=== PATIENT | female | born 1990 | race Caucasian/White ===

== ENCOUNTER 2017-04-18 01:51 | Observation (INO) ==
[2017-04-18 02:27] LABS: Basophils % 0.4 %; Eosinophils # 0.1 K/mcL (0.0-0.6); Eosinophils % 0.7 %; Hematocrit 38.8 % (35.3-44.9); Hemoglobin 12.5 g/dL (11.5-15.4); Immature Granulocytes % 0.3 % (0-4); Immature Platelets 1.3 % (1.1-6.1); Lymphocytes # 2.2 K/mcL (0.6-4.6); Mean Corpuscular HGB Conc 32.2 g/dL (31.6-35.5); Mean Corpuscular Hemoglobin 27.6 pg (28.0-33.3); Mean Corpuscular Volume 85.7 fL (83.0-100.0); Mean Platelet Volume 8.8 fL (9.4-12.4); Monocytes # 0.7 K/mcL (0.0-1.3); Monocytes % 9.3 %; Neutrophils # 4.6 K/mcL (1.6-8.9); Platelet Count 322 K/mcL (140-400); Red Blood Count 4.53 M/mcL (3.82-4.97); Red Cell Distribution Width 12.9 % (11.5-14.5); Segmented Neutrophils % 60.3 %
[2017-04-18 02:35] LABS: INR 1.1; Prothrombin Time 11.3 Seconds (9.4-12.1)
[2017-04-18 02:38] LABS: Activated Partial Thrombo Time 36.7 Seconds (26.0-36.0)
[2017-04-18 02:41] LABS: BUN/Creatinine Ratio 11 (6-26); Blood Urea Nitrogen 9 mg/dL (7-20); Calcium 9.8 mg/dL (8.6-10.8); Carbon Dioxide 24 mEq/L (19-29); Chloride 106 mEq/L (98-109); Glucose 96 mg/dL (70-99); Osmolality,Calculated 285 (280-300); Potassium 3.7 mEq/L (3.5-4.5); Sodium 138 mEq/L (136-145); eGFR For African Americans > 60 (> 60); eGFR For Non-African Americans > 60 (> 60)
--- NOTE | 2017-04-18 03:01 | Emergency Department Note ---
Disposition Clinical Impression: Acute focal neurological deficit, onset within 3-24 hours Disposition: Admitted As Inpatient Condition: Fair Time of Disposition: 05:03 Neuro HPI - General Chief Complaint: ED Neuro Symptoms/Deficit Stated Complaint: stroke symptoms Time Seen by Provider: 04/18/17 02:00 Source: EMS Mode of arrival: EMS Limitations: altered mental status Nursing Notes Reviewed: Yes Vital Signs Reviewed: Yes - History of Present Illness HPI Narrative: 27-year-old female is brought by EMS for evaluation of neurological deficits. EMS states that they were turned out to the patient's place of employment at 0100 hours this morning. Upon their arrival at the scene, at 0122 hours, EMS report that the patient was a phasic, and refused to move her right upper and lower extremities. Upon her arrival at the emergency department, the patient is a phasic and continues to show near global deficits. She refuses to move her right upper or lower extremity. Her left upper and lower extremity have no resistance to gravity. Extraocular movements are intact. When asked to smile, the patient appears to be intentionally show bilateral facial deficits. She is able to blink and open both eyes with movement of both eyebrows and forehead musculature apparent. The patient was seen at this facility just hours earlier. At that time, she was evaluated for extrapyramidal-like effects from her Geodon. She was given a injection of Cogentin and discharged home. Onset of Symptoms Date: 04/18/17 Onset of Symptoms Time: 01:00 Timing confirmed by: other (Coworker) Location: other Improves with: none Worsens with: none Context: sudden onset On Anticoagulants: No - Related Data Home Medications: Previous Rx's Medication Instructions Recorded FLUoxetine HCl [Prozac] 20 mg PO DAILY #30 capsule 04/05/17 traZODone [TraZODone] 100 mg PO HS #60 tablet 04/05/17 Benztropine [Cogentin] 1 mg PO DAILY #14 tablet 04/17/17 Aripiprazole [Abilify] 5 mg PO DAILY #30 tablet 04/18/17 Aspirin 81 mg PO DAILY tab.chew 04/18/17 Allergies/Adverse Reactions: Allergies Allergy/AdvReac Type Severity Reaction Status Date / Time metronidazole [From Flagyl] AdvReac See Verified 12/06/16 17:15 Comments Limitations: ROS unobtainable due to patients medical condition Past Medical History - Past Medical History Attestation: Yes The following information was validated with the patient. Source: old records reviewed Medical history: Reports: kidney stones Psychiatric history: Reports: anxiety, bipolar, depression, panic disorder, schizophrenia HEALTHCARE ANALYST history: Reports: polycystic ovary syndrome - Social History Smoking Status: Never smoker Smokeless Tobacco Status: No Alcohol use: Reports: none Drug use: Reports: none Physical Exam - General Limitations: no limitations General appearance: alert - Head Head exam: atraumatic, normocephalic, normal inspection - Eye Eye exam: Present: PERRL, EOMI. Absent: nystagmus - Expanded Eye Exam Pupils: Bilateral: regular, round, reactive, size (7) - ENT ENT exam: mucous membranes moist - Chest Chest inspection: Present: normal inspection, symmetric chest wall rise - Respiratory Respiratory exam: Present: normal lung sounds bilaterally. Absent: respiratory distress, wheezes, stridor, accessory muscle use, prolonged expiratory phase - Cardiovascular Cardiovascular exam: Present: regular rate, normal rhythm, normal heart sounds - Abdominal Exam Abdominal exam: Present: soft, Non-Tender, normal bowel sounds - Extremities Exam Extremities exam: Present: normal inspection - Neurological Exam Neurological exam: Present: alert, motor sensory deficit - Expanded Neurological Exam Speech: Present: total aphasia Cranial nerves: EOM function (II, III, IV, ): Normal, facial palsy (VII): Abnormal Left, Abnormal Right, spinal accessory function (XI): Abnormal Left, Abnormal Right, tongue deviation (XII): Abnormal Left, Abnormal Right Cerebellar function: finger to nose: Abnormal Right, heel to preciado: Abnormal Right Motor strength - LUE: 5/5 Motor strength - RUE: 0/5 Motor strength - LLE: 4/5 Motor strength - RLE: 1/5 Upper motor neuron exam: pronator drift: Present of right Sensory exam upper extremity: light touch: Abnormal Right, pin prick: Abnormal Right Sensory exam lower extremity: light touch: Abnormal Right, pin prick: Abnormal Right Coma Scale Eye Opening: Spontaneous Coma Scale Motor Response: Obeys Commands - Skin Skin exam: Present: warm, dry, intact, normal color Course Course Narrative: NIHSS=17 [id number]: I spoke with Dr. Chi, Neurologist with [facility]. She will evaluate the patient via tele-stroke. The patient has been evaluated by the [facility] neurologists. TPA will not be administered. The neurologist recommends a period of observation prior to disposition. 0500: I spoke with Dr. Cmapos of the hospitalist service who has accepted the patient for admission to his service. - Reevaluation(s) Reevaluation #1: The patient's symptoms have been consistently improving ever since her arrival. She is now able to articulate and move all extremities, although some seemingly right-sided deficits still remained. We will admit the patient to the hospitalist service for further evaluation and workup. Time: 04:23 Vital Signs Temperature 98.2 F 04/18/17 01:57 Pulse Rate 94 04/18/17 01:57 Respiratory Rate 16 04/18/17 01:57 Blood Pressure 137/91 04/18/17 01:57 O2 Sat by Pulse Oximetry 98 04/18/17 01:57 Temperature 98.0 F 04/18/17 15:01 Pulse Rate 78 04/18/17 15:01 Respiratory Rate 12 04/18/17 15:01 Blood Pressure 137/97 04/18/17 15:01 O2 Sat by Pulse Oximetry 98 04/18/17 15:01 Oxygen Delivery Oxygen Delivery Room Air Neuro Symptoms/Deficit - Medical Records Medical records reviewed: Yes I reviewed the patient's medical records. - Lab Data Lab results reviewed: Yes I reviewed the patient's lab results. Lab results narrative: Lab Results 04/18/17 04/18/17 04/18/17 Range/Units 01:55 02:18 02:19 WBC 7.7 (4.3-11.1) K/mcL RBC 4.53 (3.82-4.97) M/mcL Hgb 12.5 (11.5-15.4) g/dL Hct 38.8 (35.3-44.9) % MCV 85.7 (83.0-100.0) fL MCH 27.6 L (28.0-33.3) pg MCHC 32.2 (31.6-35.5) g/dL RDW 12.9 (11.5-14.5) % Plt Count 322 (140-400) K/mcL MPV 8.8 L (9.4-12.4) fL Immature Gran % 0.3 (0-4) % Seg Neutrophils % 60.3 % Lymphocytes % 29.0 % Monocytes % 9.3 % Eosinophils % 0.7 % Basophils % 0.4 % Neutrophils # 4.6 (1.6-8.9) K/mcL Lymphocytes # 2.2 (0.6-4.6) K/mcL Monocytes # 0.7 (0.0-1.3) K/mcL Eosinophils # 0.1 (0.0-0.6) K/mcL Basophils # 0.0 (0.0-0.2) K/mcL Immature Plt Fraction 1.3 (1.1-6.1) % PT 11.3 (9.4-12.1) Seconds INR 1.1 APTT 36.7 H (26.0-36.0) Seconds Sodium (136-145) mEq/L Potassium (3.5-4.5) mEq/L Chloride (98-109) mEq/L Carbon Dioxide (19-29) mEq/L BUN (7-20) mg/dL Creatinine (0.57-1.11) mg/dL Est GFR ( Amer) (> 60) Est GFR (Non-Af Amer) (> 60) BUN/Creatinine Ratio (6-26) Glucose (70-99) mg/dL POC Glucose 90 H (58-89) Calculated Osmolality (280-300) Calcium (8.6-10.8) mg/dL Troponin I (0-0.03) ng/mL 04/18/17 04/18/17 Range/Units 02:19 02:19 WBC (4.3-11.1) K/mcL RBC (3.82-4.97) M/mcL Hgb (11.5-15.4) g/dL Hct (35.3-44.9) % MCV (83.0-100.0) fL MCH (28.0-33.3) pg MCHC (31.6-35.5) g/dL RDW (11.5-14.5) % Plt Count (140-400) K/mcL MPV (9.4-12.4) fL Immature Gran % (0-4) % Seg Neutrophils % % Lymphocytes % % Monocytes % % Eosinophils % % Basophils % % Neutrophils # (1.6-8.9) K/mcL Lymphocytes # (0.6-4.6) K/mcL Monocytes # (0.0-1.3) K/mcL Eosinophils # (0.0-0.6) K/mcL Basophils # (0.0-0.2) K/mcL Immature Plt Fraction (1.1-6.1) % PT (9.4-12.1) Seconds INR APTT (26.0-36.0) Seconds Sodium 138 (136-145) mEq/L Potassium 3.7 (3.5-4.5) mEq/L Chloride 106 (98-109) mEq/L Carbon Dioxide 24 (19-29) mEq/L BUN 9 (7-20) mg/dL Creatinine 0.82 (0.57-1.11) mg/dL Est GFR ( Amer) > 60 (> 60) Est GFR (Non-Af Amer) > 60 (> 60) BUN/Creatinine Ratio 11 (6-26) Glucose 96 (70-99) mg/dL POC Glucose (58-89) Calculated Osmolality 285 (280-300) Calcium 9.8 (8.6-10.8) mg/dL Troponin I 0.00 (0-0.03) ng/mL Result diagrams: 04/18/17 02:19 04/18/17 02:19 Lab Results 04/18/17 04/18/17 04/18/17 Range/Units 01:55 02:18 02:19 WBC 7.7 (4.3-11.1) K/mcL RBC 4.53 (3.82-4.97) M/mcL Hgb 12.5 (11.5-15.4) g/dL Hct 38.8 (35.3-44.9) % MCV 85.7 (83.0-100.0) fL MCH 27.6 L (28.0-33.3) pg MCHC 32.2 (31.6-35.5) g/dL RDW 12.9 (11.5-14.5) % Plt Count 322 (140-400) K/mcL MPV 8.8 L (9.4-12.4) fL Immature Gran % 0.3 (0-4) % Seg Neutrophils % 60.3 % Lymphocytes % 29.0 % Monocytes % 9.3 % Eosinophils % 0.7 % Basophils % 0.4 % Neutrophils # 4.6 (1.6-8.9) K/mcL Lymphocytes # 2.2 (0.6-4.6) K/mcL Monocytes # 0.7 (0.0-1.3) K/mcL Eosinophils # 0.1 (0.0-0.6) K/mcL Basophils # 0.0 (0.0-0.2) K/mcL Immature Plt Fraction 1.3 (1.1-6.1) % PT 11.3 (9.4-12.1) Seconds INR 1.1 APTT 36.7 H (26.0-36.0) Seconds Sodium (136-145) mEq/L Potassium (3.5-4.5) mEq/L Chloride (98-109) mEq/L Carbon Dioxide (19-29) mEq/L BUN (7-20) mg/dL Creatinine (0.57-1.11) mg/dL Est GFR ( Amer) (> 60) Est GFR (Non-Af Amer) (> 60) BUN/Creatinine Ratio (6-26) Glucose (70-99) mg/dL POC Glucose 90 H (58-89) Calculated Osmolality (280-300) Calcium (8.6-10.8) mg/dL Troponin I (0-0.03) ng/mL 04/18/17 04/18/17 Range/Units 02:19 02:19 WBC (4.3-11.1) K/mcL RBC (3.82-4.97) M/mcL Hgb (11.5-15.4) g/dL Hct (35.3-44.9) % MCV (83.0-100.0) fL MCH (28.0-33.3) pg MCHC (31.6-35.5) g/dL RDW (11.5-14.5) % Plt Count (140-400) K/mcL MPV (9.4-12.4) fL Immature Gran % (0-4) % Seg Neutrophils % % Lymphocytes % % Monocytes % % Eosinophils % % Basophils % % Neutrophils # (1.6-8.9) K/mcL Lymphocytes # (0.6-4.6) K/mcL Monocytes # (0.0-1.3) K/mcL Eosinophils # (0.0-0.6) K/mcL Basophils # (0.0-0.2) K/mcL Immature Plt Fraction (1.1-6.1) % PT (9.4-12.1) Seconds INR APTT (26.0-36.0) Seconds Sodium 138 (136-145) mEq/L Potassium 3.7 (3.5-4.5) mEq/L Chloride 106 (98-109) mEq/L Carbon Dioxide 24 (19-29) mEq/L BUN 9 (7-20) mg/dL Creatinine 0.82 (0.57-1.11) mg/dL Est GFR ( Amer) > 60 (> 60) Est GFR (Non-Af Amer) > 60 (> 60) BUN/Creatinine Ratio 11 (6-26) Glucose 96 (70-99) mg/dL POC Glucose (58-89) Calculated Osmolality 285 (280-300) Calcium 9.8 (8.6-10.8) mg/dL Troponin I 0.00 (0-0.03) ng/mL - Radiology Data Radiology results reviewed: Yes I reviewed the patient's radiology results. Head CT 04/18/17 02:04 IMPRESSION: No acute intracranial abnormality. Findings were discussed with Renaldo Ross at 2:19 am on 04/18/2017. D/ / Marty Winkler MD / Marty Winkler MD Interpreting Provider: Marty Winkler MD Attestation Statement - Attestation Attestation: I, Isreal Eastman, examined this patient and my medical decision-making was reviewed with the CERTIFIED PERSONAL FINANCE COUNSELOR/PA/Advanced Practice Nurse/Resident Physician. I agree with the documented findings, disposition and treatment plan as described except to the extent set forth below. 27-year-old female presents to emergency Department with concerns of neurologic deficit. Patient states she had acute onset of weakness in her right upper and right lower extremity. She states she is unable to speak or have other facial movements. Stroke alert was called after initial evaluation however patient's exam is affected by a lack of effort by the patient. Patient was evaluated by [facility] neurology who recommended no TPA. They recommended admission to hospital for MRI and further care and evaluation likely psychiatric evaluation.
[2017-04-18] MEDS ORDERED: Naloxone 0.4 MG/ML INJ IVP PRN (07:30)
--- NOTE | 2017-04-18 08:52 | Internal Med History&Physical ---
Date of Encounter: 04/18/17 Time of Encounter: 08:00 Assessment and Plan (1) Combined pyramidal-extrapyramidal syndrome Current visit: No Status: Acute Has been given Congentin and Geodon held. Psychiatry consulted for advice on medications. (2) Acute focal neurological deficit, onset within 3-24 hours Current visit: Yes Status: Acute Most likely related to Geodon versus psychiatric component. Geodon on hold. Will get MRI of head and neck as well as MRA and echo. Expect these will be negative and she will be medically able to be discharged. (3) Schizophrenia Current visit: No Status: Chronic No acute issues at this time but antipsychotic currently on hold. Qualifiers: Schizophrenia type: paranoid schizophrenia Qualified Code(s): F20.0 - Paranoid schizophrenia Internal Medicine - H&P: HPI Chief complaint: Speech difficulty Admitted From: Emergency Dept Plans for Post Hospital Care: Home History of present illness: Ms. Rogesr is a 27 year old female with hx of paranoid schizophrenia recently discharged from on 04/06/17 presented to ED with symptoms of aphasia and bilateral weakness and "twitching". She was recently started on Geodon. She had presented to the ED here earlier in the day with jerking movements. She was given parental Cogentin and discharged with a prescription for PO Cogentin. She went to work and develop symptoms of expressive aphasia and generalized weakness and twitching. A stroke alert was called and [facility] contacted. She was not a TPA candidate and her symptoms were gradually improving. At this time she feels she is continuing to have some sporadic movements. No parasthesias. No fever or chills. Says she recently stepped on a charlene nail but got tetanus shot. Past Med Surg Social Fam HX - Past Medical History Source: patient, old records reviewed Medical history: kidney stones Psychiatric history: anxiety, bipolar, depression, panic disorder, schizophrenia - Past Surgical History Surgical History: no surgical history - Social History Smoking Status: Never smoker Smokeless Tobacco Status: No Alcohol use: rarely Drug use: none Occupational status: employed Current living situation: Home - Independent Activity Level: Independent ambulation - Family History Father Adopted: No Race: Hx Family Cardiac Disorders: Yes (IA, 6 STENTS, HTN) Hx Family Respiratory Disorders: Yes (COPD, PNEUMONIA) Hx Family Cancer: No Hx Family GI Disorders: No Hx Family Genitourinary Disorders: No Hx Family Endocrine Disorder: No Hx Family Musculoskeletal Disorders: No Hx Family Neuromuscular Disorders: No Hx Family Neurologic Disorders: No Hx Family HEENT Disorders: No Hx Family Autoimmune Disorders: No Hx Family Reproductive Disorders: No Hx Family Psychosocial Disorders: No Hx Family Medical Disorders: No Mother Living Status: Still Living Hx Family Cardiac Disorders: Yes (Questionable CHF ) Internal Medicine - H&P: Meds FLUoxetine HCl [Prozac] 20 mg PO DAILY #30 capsule 04/05/17 [Rx] Ziprasidone [Geodon] 20 mg PO 0900 #30 capsule 04/05/17 [Rx] Ziprasidone [Geodon] 40 mg PO HS #30 capsule 04/05/17 [Rx] traZODone [TraZODone] 100 mg PO HS #60 tablet 04/05/17 [Rx] Benztropine [Cogentin] 1 mg PO DAILY #14 tablet 04/17/17 [Rx] 3 Allergy/AdvReac Type Severity Reaction Status Date / Time metronidazole [From Flagyl] AdvReac See Verified 12/06/16 17:15 Comments All Systems PM: A 10-system review of systems was performed and is negative for pertinent findings except as documented above in the HPI. - Constitutional Constitutional: fatigue, weight gain - EENT Eyes: no blurry vision, no floaters, no pain Ears: no decreased hearing, no ear discharge Nose, mouth and throat: no change in voice, no mouth pain, no nasal discharge - Cardiovascular Cardiovascular ROS IM: chest pain, no orthopnea, no palpitations - Respiratory Respiratory: dyspnea, no pain on inspiration, no chest congestion - Gastrointestinal Gastrointestinal: no bloating, no diarrhea, no loose stools, no melena - Genitourinary Genitourinary: no difficulty urinating, no dysuria, no urinary urgency - Musculoskeletal Musculoskeletal ROS IM: back pain, no numbness - Neurological Neurological ROS: abnormal movements, tremor(s), weakness, no numbness, no paresthesias - Endocrine Endocrine IM: fatigue, no cold intolerance - Hematologic/Lymphatic Hematologic/Lymphatic: no easy bleeding - Allergic/Immunologic Allergic/Immunologic: no uticaria - Constitutional Vitals: Temp Pulse Resp BP Pulse Ox 97.8 F 70 10 146/84 99 04/18/17 06:44 04/18/17 06:44 04/18/17 06:44 04/18/17 06:44 04/18/17 06:44 General appearance: Present: A&O X 3, answers questions appropriately - Head Head exam: Present: normocephalic - Eye Eye exam: Present: EOMI, PERRL, conjuntiva pink - ENT ENT exam: Present: mucous membranes moist - Respiratory Respiratory exam: Present: CTAB. Absent: rales, rhonchi, wheezes - Cardiovascular Cardiovascular exam: Present: RRR. Absent: irregular rhythm, tachycardia - GI/Abdominal GI/Abdominal exam: Present: normal bowel sounds, soft. Absent: tenderness - Extremities Exam Extremities exam: Present: warm. Absent: pedal edema, tenderness Additional comments: Bandaids over small areas of "bug bites" - Neurological Exam Neurological exam: Present: alert, oriented X3, strengths equal and symetr throughout Additional comments: Occasional "jerking" movement. Occasional tremor-like movement in hands. Diffusely weak though not consistent. Says she has decreased sensation R lower face. - Psychiatric Psychiatric exam: Present: normal mood - Skin Skin exam: Present: dry, warm. Absent: rash Internal Med - H&P Results - Labs CBC & Chem 7: 04/18/17 02:19 04/18/17 02:19
[2017-04-18] MEDS ORDERED: Aspirin 81 MG TAB.CHEW PO SCH (09:00)
[2017-04-18] MEDS ORDERED: FLUoxetine 20 MG CAPSULE PO SCH (09:00)
[2017-04-18] MEDS ORDERED: Ziprasidone 20 MG CAPSULE PO SCH ×2 (09:00→21:00)
[2017-04-18] MEDS: *HR* Heparin 5,000 UNIT/ML VIAL SQ SCH ×2 (09:21→14:14)
--- NOTE | 2017-04-18 13:57 | Neurology - Consult Note ---
<Juan Francisco Rojas - Last Filed: 04/18/17 14:50> Date of Encounter: 04/18/17 Time of Encounter: 13:15 Assessment and Plan (1) Neurological symptoms Current Visit: Yes Status: Acute Patient reports right sided numbness and some unsteadiness when her eyes are open. She originally presented with slurred speech and weakness, all of which has resolved at this point. MRI and MRA did not show CVA or stenosis. There was some concern that there is some mild disk protrusion of the C4-C5 disk. It appears to be touching the spinal cord. She had recently been in and was started on Geodon, from which she appeared to have developed some extra- pyramidal side effects. Her current constellation of symptoms do not appear to follow a course predictable by an isolated neurologic incident and stroke workup has been negative. No need for surgery at this time consider ENG as outpatient if symptoms of weakness, brisk reflexes or ataxia develops History of Present Illness Chief complaint: Aphasia and muscle "jerks" HPI: Ms. Rogers is a 27 year old female with past medical history of paranoid schizophrenia, polycystic ovarian syndrome, and nephrolithiasis presents to [facility] early this morning reporting aphasia, b/l leg weakness and "twitching." She had been discharged from at [facility] on 04/05 after having an acute episode of psychosis and had been started on Geondon at that time. She had presented to [facility] yesterday evening reporting weakness and twitching and had been diagnosed with having extra-pyramidal side effects of the Geondon. She was given parenteral benztropine and sent home with continued PO benztropine at that time. She returned to [facility] later that same evening after having developed aphasia at work. She reports that her co-worker was concerned that she was having a CVA because of the facial droop and slurred speech that she was having, this was at ~0100. She felt as if her tongue were very heavy and that is what was causing her difficulty in speech. She reports that her speech improved after a couple hours , but she continued ton have some occasional stuttering (which was not present for the entirety of the conversation, except for when she told me she was having it). She states that she has continued to have "twitching" of various muscles that would occur randomly and bilaterally, but that these twitches would not result in a jerk. She states that it feels like one muscle cramping very quickly then it goes away. At the time I spoke with her she denies having any weakness, CLEMENT, vision changes, or sensation changes. Past Med Surg Social Fam HX - Past Medical History Medical history: kidney stones Psychiatric history: anxiety, bipolar, depression, panic disorder, schizophrenia - Past Surgical History Surgical History: no surgical history - Social History Smoking Status: Never smoker Smokeless Tobacco Status: No Alcohol use: rarely Drug use: none - Family History Father Adopted: No Race: Hx Family Cardiac Disorders: Yes (DE, 6 STENTS, HTN) Hx Family Respiratory Disorders: Yes (COPD, PNEUMONIA) Hx Family Cancer: No Hx Family GI Disorders: No Hx Family Genitourinary Disorders: No Hx Family Endocrine Disorder: No Hx Family Musculoskeletal Disorders: No Hx Family Neuromuscular Disorders: No Hx Family Neurologic Disorders: No Hx Family HEENT Disorders: No Hx Family Autoimmune Disorders: No Hx Family Reproductive Disorders: No Hx Family Psychosocial Disorders: No Hx Family Medical Disorders: No Mother Living Status: Still Living Hx Family Cardiac Disorders: Yes (Questionable CHF ) Medications and Allergies FLUoxetine HCl [Prozac] 20 mg PO DAILY #30 capsule 04/05/17 [Rx] Ziprasidone [Geodon] 20 mg PO 0900 #30 capsule 04/05/17 [Rx] Ziprasidone [Geodon] 40 mg PO HS #30 capsule 04/05/17 [Rx] traZODone [TraZODone] 100 mg PO HS #60 tablet 04/05/17 [Rx] Benztropine [Cogentin] 1 mg PO DAILY #14 tablet 04/17/17 [Rx] 3 Allergy/AdvReac Type Severity Reaction Status Date / Time metronidazole [From Flagyl] AdvReac See Verified 12/06/16 17:15 Comments All Systems: Gen: Denies fever, denies chills, denies weakness, reports chronic fatigue CV: Denies chest pain, reports palpitations Resp: Denies shortness of breath, reports chronic coughing, denies changes in phlegm production GI: Denies nausea, denies vomiting, denies abdominal pain MSK: denies arthralgia, denies muscle weakness Neuro: Denies headache, denies confusion, denies focal weakness, denies numbness , denies tingling, denies vision changes, reports occasional muscle twitching as per HPI Physical Examination - Vital Signs Vital Signs: Initial Vital Signs Temp Pulse Resp BP Pulse Ox 98.2 F 94 16 137/91 98 04/18/17 01:57 04/18/17 01:57 04/18/17 01:57 04/18/17 01:57 04/18/17 01:57 - Exam Exam: General: Cooperative, pleasant, no acute distress, alert and oriented 3, answers questions appropriately HEENT: Normocephalic, atraumatic, neck supple, trachea midline, Conjunctiva pink , sclera anicteric, EOMI, PERRL, oral mucosa moist, no orophargeal erythema or exudates Respiratory: No accessory muscle usage, clear to auscultation bilaterally, no wheezes/rhonchi/rales appreciated Cardiovascular: Regular rate and rhythm, S1 and S2 present, no murmurs/rubs/ gallops/clicks appreciated GI/abdominal: Nondistended, nontender, soft, normal bowel sounds, no peritoneal signs Extremities: No calf tenderness, noncyanotic, no pedal edema appreciated, warm, lower extremity pulses palpable and symmetrical Neurological: Alert and oriented 3, no facial droop, heel to preciado and finger to nose smooth and accurate, rapid alternating movements intact with good patrice, cranial nerves II through XII grossly intact with reported decreased sensation in right maxilla and mandible,strength 5/5 in upper and lower extremities b/l, DTRs 1/4 in Achilles, patellar, brachioradialis, triceps b/l, could not test DTR in right biceps, sensation to light touch reduced on right side of body, b/l Babinski downgoing, Romberg normal, gait slightly unsteady, balance off when eyes open Skin: Dry, intact, normal color Results - Laboratory Findings CBC and BMP: 04/18/17 02:19 04/18/17 02:19 Abnormal lab findings: Abnormal lab results MCH 27.6 pg (28.0-33.3) L 04/18/17 02:19 MPV 8.8 fL (9.4-12.4) L 04/18/17 02:19 APTT 36.7 Seconds (26.0-36.0) H 04/18/17 02:18 POC Glucose 90 (58-89) H 04/18/17 01:55 Consult Discharge Plan - Plan Referrals: Luiza Sampson, LIDAR TECHNICIAN [Primary Care Provider] - <Mathew Young I - Last Filed: 04/18/17 15:41> Date of Encounter: 04/18/17 Assessment and Plan (1) Neurological symptoms Current Visit: Yes Status: Acute Patient seen and examined agreed with with Dr. Rojas assessment and plan though initially her symptoms as more of difficulty with his speech as well as some extrapyramidal symptoms perhaps could be related to medication side effects but at the same time there is no evidence of true aphasia neither any evidence of ischemic changes on her multiple imaging studies she had particularly MRI of the brain was negative for any acute infarct at the same time there is no evidence of any critical stenosis in her intracranial circulation. Patient noted to have C5-6 disc disease with some mild flattening of the cord without any critical stenosis. These findings can cause radicular symptoms particularly in the right upper extremity with some weakness as well as pain and numbness but at this time she did not have any critical stenosis and that does not require any surgical intervention at this time. In the future if patient develops any other symptoms that could be treated accordingly at this time I would not recommend any further workup for her cervical disc disease which is likely chronic in nature. She should be followed up by psychiatry for other underlying conditions Thank you for very much for your kind consultation Mathew Young MD (2) DJD (degenerative joint disease) of cervical spine Current Visit: Yes Status: Acute Qualifiers: Spinal osteoarthritis complication: unspecified spinal osteoarthritis Qualified Code(s): M47.812 - Spondylosis without myelopathy or radiculopathy, cervical region History of Present Illness HPI: Ms. Rogers is a 27 year old female All Systems: A 10-system review of systems was performed and is negative for pertinent findings except as documented above in the HPI. Physical Examination - Vital Signs Vital Signs: Initial Vital Signs Temp Pulse Resp BP Pulse Ox 98.2 F 94 16 137/91 98 04/18/17 01:57 04/18/17 01:57 04/18/17 01:57 04/18/17 01:57 04/18/17 01:57 Results - Laboratory Findings CBC and BMP: 04/18/17 02:19 04/18/17 02:19 Abnormal lab findings: Abnormal lab results MCH 27.6 pg (28.0-33.3) L 04/18/17 02:19 MPV 8.8 fL (9.4-12.4) L 04/18/17 02:19 APTT 36.7 Seconds (26.0-36.0) H 04/18/17 02:18 POC Glucose 90 (58-89) H 04/18/17 01:55
[2017-04-18 15:04] VITALS: BP 137/97
--- NOTE | 2017-04-18 15:09 | Consult Note ---
Date of Encounter: 04/18/17 Time of Encounter: 15:05 Assessment & Recommendation (1) Schizophrenia Current visit: No Status: Chronic Assessment & Recommendation: Do not believe her current presentation is related to the Geodon. Although Geodon can cause EPS symptoms it is one of the least likely antipsychotics to do so. Client's description of her symptoms also do not sound like an EPS reaction. If she wants to change medications Abilify is another one that is weight neutral and less likely to cause EPS than some of the older agents. Can start at 5mg daily. However, if she wants to remain on the Geodon she can continue to take Cogentin as needed and follow up with psychiatry on an outpatient basis. Qualifiers: Schizophrenia type: paranoid schizophrenia Qualified Code(s): F20.0 - Paranoid schizophrenia History of Present Illness Requesting Physician: Harjeet Cruz DO Reason for consult: medication side effects History of present illness: Ms. Rogers is a 27 year old female who was started on Geodon three weeks ago for a psychotic episode. Presented to the ER yesterday secondary to stroke like symptoms. Work up has been negative. Client described the symptoms as sudden in onset with right sided weakness, facial droop, and slurred speech. CC: Harjeet Cruz DO Past Med Surg Social Fam HX - Past Medical History Medical history: kidney stones - Past Psychiatric History Psychiatric history: Reports: schizophrenia, previous psychiatric hospitalization Family psychiatric history: Unknown Family History of Suicide: Unknown - Past Surgical History Surgical History: no surgical history - Social History Smoking Status: Never smoker Smokeless Tobacco Status: No Alcohol use: rarely Drug use: none - Family History Father Adopted: No Race: Hx Family Cardiac Disorders: Yes (DE, 6 STENTS, HTN) Hx Family Respiratory Disorders: Yes (COPD, PNEUMONIA) Hx Family Cancer: No Hx Family GI Disorders: No Hx Family Genitourinary Disorders: No Hx Family Endocrine Disorder: No Hx Family Musculoskeletal Disorders: No Hx Family Neuromuscular Disorders: No Hx Family Neurologic Disorders: No Hx Family HEENT Disorders: No Hx Family Autoimmune Disorders: No Hx Family Reproductive Disorders: No Hx Family Psychosocial Disorders: No Hx Family Medical Disorders: No Mother Living Status: Still Living Hx Family Cardiac Disorders: Yes (Questionable CHF ) Medications & Allergies FLUoxetine HCl [Prozac] 20 mg PO DAILY #30 capsule 04/05/17 [Rx] Ziprasidone [Geodon] 20 mg PO 0900 #30 capsule 04/05/17 [Rx] Ziprasidone [Geodon] 40 mg PO HS #30 capsule 04/05/17 [Rx] traZODone [TraZODone] 100 mg PO HS #60 tablet 04/05/17 [Rx] Benztropine [Cogentin] 1 mg PO DAILY #14 tablet 04/17/17 [Rx] 3 Allergy/AdvReac Type Severity Reaction Status Date / Time metronidazole [From Flagyl] AdvReac See Verified 12/06/16 17:15 Comments Review of Systems Constitutional: Denies: fever, chills, weakness, weight change Eyes: Denies: eye pain, vision change Ears, Nose, Throat: Denies: ear pain, throat pain, dental pain, hearing loss, congestion Cardiovascular: Denies: chest pain, palpitations, dyspnea on exertion Respiratory: Denies: cough, dyspnea, wheezes Gastrointestinal: Denies: abdominal pain, nausea, vomiting, diarrhea, constipation Genitourinary male: Denies: urgency, dysuria, frequency, genital lesions Genitourinary female: Denies: urgency, dysuria, frequency, abnormal menses, dyspareunia Musculoskeletal: Denies: joint swelling, joint pain Integumentary: Denies: rash, lesions, pruritus Neurological: Denies: headache, weakness, numbness, memory loss Endocrine: Denies: fatigue, heat or cold intolerance Hematologic/Lymphatic: Denies: easy bruising, lymphadenopathy Allergic/Immunologic: Denies: urticaria, itchy eyes Mental Status Exam Patient orientation: Yes Person, Yes Time, Yes Place Level of alertness: Alert Patient appearance: Appropriate, Well Groomed Behavior: calm, cooperative Psychomotor activity: Normal Eye contact: Maintains Eye Contact Mood description: Euthymic/stable Affect description: congruent with mood, full range Speech pattern: Normal rate, Normal rhythm, Normal tone Speech volume: Normal Thought process: Linear, Goal Oriented Thought content: No Suicidal ideation, No Homicidal ideation, No Overt delusions Perceptual disturbances: No Auditory hallucinations, No Visual hallucinations Attention span: Capable of Focused Attention Memory description: Grossly Intact Patient reliability: Reliable Historian Intelligence estimate: Average Judgment: Fair Insight: Partial Results - Vital Signs Vital signs: Temp Pulse Resp BP Pulse Ox 98.0 F 78 12 137/97 98 04/18/17 15:01 04/18/17 15:01 04/18/17 15:01 04/18/17 15:01 04/18/17 15:01 - Labs Labs: Laboratory Last Values WBC 7.7 K/mcL (4.3-11.1) 04/18/17 02:19 RBC 4.53 M/mcL (3.82-4.97) 04/18/17 02:19 Hgb 12.5 g/dL (11.5-15.4) 04/18/17 02:19 Hct 38.8 % (35.3-44.9) 04/18/17 02:19 MCV 85.7 fL (83.0-100.0) 04/18/17 02:19 MCH 27.6 pg (28.0-33.3) L 04/18/17 02:19 MCHC 32.2 g/dL (31.6-35.5) 04/18/17 02:19 RDW 12.9 % (11.5-14.5) 04/18/17 02:19 Plt Count 322 K/mcL (140-400) 04/18/17 02:19 MPV 8.8 fL (9.4-12.4) L 04/18/17 02:19 Immature Gran % 0.3 % (0-4) 04/18/17 02:19 Seg Neutrophils % 60.3 % 04/18/17 02:19 Lymphocytes % 29.0 % 04/18/17 02:19 Monocytes % 9.3 % 04/18/17 02:19 Eosinophils % 0.7 % 04/18/17 02:19 Basophils % 0.4 % 04/18/17 02:19 Neutrophils # 4.6 K/mcL (1.6-8.9) 04/18/17 02:19 Lymphocytes # 2.2 K/mcL (0.6-4.6) 04/18/17 02:19 Monocytes # 0.7 K/mcL (0.0-1.3) 04/18/17 02:19 Eosinophils # 0.1 K/mcL (0.0-0.6) 04/18/17 02:19 Basophils # 0.0 K/mcL (0.0-0.2) 04/18/17 02:19 Immature Plt Fraction 1.3 % (1.1-6.1) 04/18/17 02:19 PT 11.3 Seconds (9.4-12.1) 04/18/17 02:18 INR 1.1 04/18/17 02:18 APTT 36.7 Seconds (26.0-36.0) H 04/18/17 02:18 Sodium 138 mEq/L (136-145) 04/18/17 02:19 Potassium 3.7 mEq/L (3.5-4.5) 04/18/17 02:19 Chloride 106 mEq/L (98-109) 04/18/17 02:19 Carbon Dioxide 24 mEq/L (19-29) 04/18/17 02:19 BUN 9 mg/dL (7-20) 04/18/17 02:19 Creatinine 0.82 mg/dL (0.57-1.11) 04/18/17 02:19 Est GFR ( Amer) > 60 (> 60) 04/18/17 02:19 Est GFR (Non-Af Amer) > 60 (> 60) 04/18/17 02:19 BUN/Creatinine Ratio 11 (6-26) 04/18/17 02:19 Glucose 96 mg/dL (70-99) 04/18/17 02:19 POC Glucose 90 (58-89) H 04/18/17 01:55 Calculated Osmolality 285 (280-300) 04/18/17 02:19 Calcium 9.8 mg/dL (8.6-10.8) 04/18/17 02:19 Troponin I 0.00 ng/mL (0-0.03) 04/18/17 02:19 - Impressions Impressions Brain MRI 04/18/17 07:33 IMPRESSION: 1. Unremarkable MRI of the brain. No evidence of an acute infarct. 2. Unremarkable MRA of the brain. D/ : / 04/18/2017 11:44:54 Hector Chamberlain MD / franklin Interpreting Provider: Hector Chamberlain MD Cervical Spine MRI 04/18/17 07:33 IMPRESSION: 1. There is a 3 mm broad-based central disc protrusion at C4-C5, flattening the ventral margin of the cervical spinal cord. No significant central spinal canal stenosis. D/ / 04/18/2017 11:49:32 Hector Chamberlain MD / ann Interpreting Provider: Hector Chamberlain MD Head MRA 04/18/17 07:33 IMPRESSION: 1. Unremarkable MRI of the brain. No evidence of an acute infarct. 2. Unremarkable MRA of the brain. D/ /18/2017 11:44:54 Hector Chamberlain MD / frnaklin Interpreting Provider: Hector Chamberlain MD Neck MRA 04/18/17 07:33 IMPRESSION: 1. Unremarkable MRA of the neck. D/ / 04/18/2017 11:47:53 Hector Chamberlain MD / franklin Interpreting Provider: Hector Chamberlain MD Consult Discharge Plan - Plan Referrals: Luiza Sampson, MANAGER SPECIALTY [Primary Care Provider] -
--- NOTE | 2017-04-18 17:43 | Discharge Summary ---
Date of Encounter: 04/18/17 Time of Encounter: 17:41 - Discharge Diagnosis (1) Combined pyramidal-extrapyramidal syndrome Priority: Primary Status: Acute (2) Acute focal neurological deficit, onset within 3-24 hours Priority: Secondary Status: Acute (3) Schizophrenia Priority: Secondary Status: Chronic Qualifiers: Schizophrenia type: paranoid schizophrenia Qualified Code(s): F20.0 - Paranoid schizophrenia (4) DJD (degenerative joint disease) of cervical spine Priority: Secondary Status: Acute Qualifiers: Spinal osteoarthritis complication: without myelopathy or radiculopathy Qualified Code(s): M47.812 - Spondylosis without myelopathy or radiculopathy, cervical region - Discharge Medications Prescriptions: Aripiprazole [Abilify] 5 mg PO DAILY #30 tablet Home Medications: FLUoxetine HCl [Prozac] 20 mg PO DAILY #30 capsule 04/05/17 [Rx] traZODone [TraZODone] 100 mg PO HS #60 tablet 04/05/17 [Rx] Benztropine [Cogentin] 1 mg PO DAILY #14 tablet 04/17/17 [Rx] Aripiprazole [Abilify] 5 mg PO DAILY #30 tablet 04/18/17 [Rx] Aspirin 81 mg PO DAILY tab.chew 04/18/17 [Rx] Allergies/Adverse Reactions: 3 Allergy/AdvReac Type Severity Reaction Status Date / Time metronidazole [From Flagyl] AdvReac See Verified 12/06/16 17:15 Comments Procedures/tests Complete & Pending: Procedures Performed prior 72 hours Category Date Time Status MR angio head wo con [MR] Routine MRI 04/18/17 07:33 Completed MR angio neck wo/w con [MR] Routine MRI 04/18/17 07:33 Completed MR cervical spine wo con [MR] Routine MRI 04/18/17 07:33 Completed MR head/brain wo con [MR] Routine MRI 04/18/17 07:33 Completed EV echocardiogram Routine Y 04/18/17 07:34 Stop Req - Notes to Outpatient Provider Echo was ordered but not done. Not neurologic event. Otherwise no indication noted. Date of admission: 04/18/17 05:10 Primary care physician: Luiza Sampson CNP Consults: 04/18/17 06:44 Consult to Motor Mechanic [CONS] Routine Reason for SW Consult: Potential needs for discharge 04/18/17 08:28 Consult to Psychiatry [CONS] Routine Consulting Provider: Psychiatry Ruth Reason for Consult: Med assistance. Pt with paranoid schizophrenia. Recent start on Geodon. Now with "twitching" and neuro symptoms. Time Notified: 08:30 Call Completed: Yes 04/18/17 12:11 Consult to Neurology [CONS] Routine Consulting Provider: [facility] Reason for Consult: ? aphasia episode. tremor and weakness. Might be related to psych meds but has abnormal C spine MRI. Time Notified: 12:10 Call Completed: Yes Discharging clinician: Harjeet Cruz Anticipated date of discharge: 04/18/17 - Patient Status Disposition: Home, Self-Care Condition: Fair Functional capacity at discharge: independent ambulation Overall status at discharge: patient is progressing back to baseline - Discharge Instructions Follow Up With: Luiza Sampson CNP [Primary Care Provider] - Additional Instructions: Take the Cogentin prescribed by the ER as needed. Follow up with your PCP and psychiatry. - Diet and Activity Activity: increase activity as tolerated Diet: advance to your usual diet Hospital course: Ms. Rogers is a 27 year old female with hx of paranoid schizophrenia presented to ED twice with neurologic symptoms. She initially was discharged with Cogentin but returned with similar symptoms. She was placed in observation. Ms Rogers was placed in observation on med tele. She had no dysrhythmia. She underwent MRI of head which was negative. MRAs negative as well. MRI of neck showed disc bulge at C3-4. She had no recurrent events. She is afebrile with stable vitals and will be discharged home on new antipsychotic of Abilify. - Time Spent with Patient Total time spent providing and/or coordinating discharge services: - Constitutional Vitals: Temp Pulse Resp BP Pulse Ox 98.0 F 78 12 137/97 98 04/18/17 15:01 04/18/17 15:01 04/18/17 15:01 04/18/17 15:01 04/18/17 15:01 General appearance: Present: A&O X 3, answers questions appropriately - Head Head exam: Present: normocephalic - Eye Eye exam: Present: conjuntiva pink - ENT ENT exam: Present: mucous membranes dry - Respiratory Respiratory exam: Present: CTAB - Cardiovascular Cardiovascular exam: Present: RRR - Extremities Exam Extremities exam: Present: warm. Absent: tenderness
[2017-04-18] MEDS ORDERED: FLUARIX QUAD 2017-18 36MOS UP/PF 0.5 ML SYRINGE IM ONE (18:03)
[2017-04-18] MEDS ORDERED: traZODone 50 MG TABLET PO SCH (21:00)
--- NOTE | 2017-04-19 16:34 | Electrocardiograph Report ---
[place] [id number] Test Date: 2017-04-18 Pat Name: Breana Rogers Department: 103 Room: [facility] Gender: F Medical Health Researcher: NORMA : 1990 Requested By: Harjeet Cruz Order Number: [id number] Reading MD: Hanna Desouza Measurements Intervals [place] Rate: 79 P: 29 [place]: 165 QRS: 53 QRSD: 88 T: 48 QT: 334 QTc: 368 Interpretive Statements SINUS RHYTHM Electronically Signed On 04-19-2017 16:33:15 EDT by Hanna Desouza
== END 2017-04-18 18:27 | disposition home or self-care (01) ==
LOC: EMEROO 01:51 → 2NENU 01:51
PROVIDERS: ADMIT Pediatrics; ATTEND Internal Medicine